=== PATIENT | male | born 1935 | race Caucasian/White ===

== ENCOUNTER 2018-12-01 01:30 | Emergency (ER) | payer OTHER ==
[~2018-12-01] VITALS: Ht 182.9 cm; Wt 112.0 kg
[~2018-12-01 01:30] MED LIST: ADULT LOW DOSE81 MG PO; ADVAIR HFA 230M12 GM INH; ALLOPURINOL 30300 M1 PO; CALCITRATE200 MG PO; CARDURA XL8 MG PO; CEFDINIR300 MG PO; CELEBREX 200 M200 M1 PO; CORTISPORIN OTI10 ML OT; COUMADIN 4 MG TA4 M1 PO; COUMADIN7.5 MG PO; ENOXAPARIN120 MG/0.8 SQ; FENOFIBRATE48 MG PO; FLOMAX0.4 MG PO; FLONASE 0.05%50 MCG NASAL; FUROSEMIDE 80 M80 M1 PO; IBUPROFEN 600600 M1 PO; K-DUR 20 MEQ T20 MEQ PO; LEVAQUIN 500 M500 M1; LISINOPRIL5 MG PO; LORATIDINE 10 M10 M1 PO; MECLIZINE HCL12.5 MG; METHOCARBAMOL500 M1 PO; MOMETASONE FURO60 ML; NAPROSYN500 MG PO; NORCO 5-325 TA1 EACH PO; PENICILLIN VK500 M1 PO; PERCOCET 5-3251 EACH PO; PREDNISONE 20 M20 MG PO; UNK MEDS; UNKNOWN MEDS; VENTOLIN HFA 1818 GM INH; ZOFRAN ODT4 MG PO
[2018-12-01] MEDS ORDERED: TRADJENTA5 MG (01:48)
[2018-12-01] MEDS ORDERED: METFORMIN HCL500 MG PO (01:48)
[2018-12-01] MEDS ORDERED: NEURONTIN 300300 M1 PO (01:49)
[2018-12-01] MEDS ORDERED: HYDROCHLOROTH12.5 M1 PO (01:49)
[2018-12-01] MEDS ORDERED: ATORVASTATIN CA40 MG PO (01:49)
[2018-12-01] MEDS ORDERED: COZAAR 50 MG TA50 M1 PO (01:50)
[2018-12-01] MEDS ORDERED: VOLTAREN GEL 1100 G1 TOP (01:50)
[2018-12-01 02:01] LABS: ABSOLUTE NEUTROPHILS 5.8 thou/uL (1.4-8.2); BASOPHILS 0.5 % (0.0-2.0); EOSINOPHILS 2.8 % (0.0-3.0); HEMOGLOBIN 15.2 gm/dL (14.0-18.0); LYMPHOCYTES 11.7 % (24.0-44.0); MCH 30.3 pg (26.0-34.0); MCHC 33.7 g/dL (28.0-37.0); MONOCYTES 9.3 % (1.0-8.0); PLATELET COUNT 129 thou/uL (150-400); POLYS 75.7 % (36.0-66.0); RDW 13.9 % (10.5-14.5); WBC 7.7 thou/uL (4.0-11.0)
[2018-12-01 02:08] LABS: ANION GAP 10 mmol/L (7-16); BUN 33 mg/dL (7-18); CALCIUM 8.9 mg/dL (8.5-10.1); CHLORIDE 97 mmol/L (98-107); CO2 29 mmol/L (21-32); CREATININE 1.3 mg/dL (0.7-1.3); GLUCOSE 144 mg/dL (74-106); POTASSIUM 3.4 mmol/L (3.5-5.1); SODIUM 136 mmol/L (136-145)
[2018-12-01 02:17] LABS: ALBUMIN 2.8 g/dL (3.4-5.0); LIPASE 105 U/L (73-393); SGOT 24 U/L (15-37); SGPT 36 U/L (30-65); TOTAL BILIRUBIN 0.7 mg/dL (<0.1-1.0); TOTAL PROTEIN 6.5 g/dL (6.4-8.2); TROPONIN-I <0.06 ng/mL (<0.06)
[2018-12-01 04:04] VITALS: BP 140/78
--- NOTE | 2018-12-01 12:08 | EKG ---
[place] [address] [facility] [place] [employer] [address] ELECTROCARDIOGRAM REPORT Name: EDEN KERR JR Room #: DEP [facility]#: [id number] ������������������ Admission: 12/01/18 ������������������ Attend Phys: Discharge: 12/01/18 ������������������ Date of : 35 Report #: [id number] ����������������������������������������������������������������� [id number] THIS REPORT FOR: //name// [facility] ED Test Date: 2018-12-01 Test Time: 01:54:06 Pat Name: EDEN USHA Department: Room: Gender: M Hand Stitcher: ángela : 1935 Requested By: Son Mclain Order Number: [id number] MD: Ottoniel Ralph Measurements Intervals [place] Rate: 77 P: 31 WI: 172 QRS: -66 QRSD: 139 T: 0 QT: 426 QTc: 483 Interpretive Statements Sinus rhythm Frequent Atrial premature complexes Left axis deviation Ventricular conduction delay consider right bundle branch block morphology Compared to ECG 04/09/2016 06:38:48 [place] and QRS duration changes noted Electronically Signed On 12-01-2018 12:07:59 [employer]IOR [employer] by Ottoniel Ralph [email or web address] ��������������������������������������������� <ELECTRONICALLY SIGNED> ���������������������������������������� By: Ottoniel Ralph MD ��������������������������������������������� 12/01/18 1209 [id number] Ottoniel Ralph MD /EPI
== END 2018-12-01 04:04 | disposition home or self-care (01) ==
LOC: ER 01:30
PROVIDERS: Emergency Medicine
DX: K20.9 Esophagitis, unspecified (principal); M10.9 Gout, unspecified; Z86.718 Personal history of other venous thrombosis and embolism; Z86.73 Personal history of transient ischemic attack (TIA), and cerebral infarction without residual deficits; Z90.49 Acquired absence of other specified parts of digestive tract; Z85.46 Personal history of malignant neoplasm of prostate

== ENCOUNTER 2019-02-28 05:53 | Emergency (ER) | payer OTHER ==
[~2019-02-28] VITALS: Ht 182.9 cm; Wt 111.1 kg
[~2019-02-28 05:53] MED LIST changes: +ATORVASTATIN CA40 MG PO; +COZAAR 50 MG TA50 M1 PO; +HYDROCHLOROTH12.5 M1 PO; +METFORMIN HCL500 MG PO; +NEURONTIN 300300 M1 PO; +TRADJENTA5 MG; +VOLTAREN GEL 1100 G1 TOP
[2019-02-28] MEDS ORDERED: ALBUTEROL2.5 MG/31 INH (06:07)
[2019-02-28] MEDS ORDERED: ASPIRIN81 M2 PO (06:08)
[2019-02-28] MEDS ORDERED: FISH OIL 1,001000 M2 PO (06:09)
[2019-02-28] MEDS ORDERED: FLONASE 0.05%50 MCG NASAL (06:09)
[2019-02-28] MEDS ORDERED: TYLENOL325 MG PO (06:11)
[2019-02-28] MEDS ORDERED: ELOCON15 GM TOP (06:12)
[2019-02-28] MEDS ORDERED: PROTONIX40 M2 PO (06:12)
[2019-02-28 06:34] LABS: ABSOLUTE NEUTROPHILS 5.4 thou/uL (1.4-8.2); BASOPHILS 0.4 % (0.0-2.0); EOSINOPHILS 1.9 % (0.0-3.0); HEMATOCRIT 48.6 % (42.0-52.0); HEMOGLOBIN 16.5 gm/dL (14.0-18.0); LYMPHOCYTES 10.2 % (24.0-44.0); MCH 31.6 pg (26.0-34.0); MCV 92.8 fL (80.0-100.0); MONOCYTES 9.7 % (1.0-8.0); PLATELET COUNT 162 thou/uL (150-400); POLYS 77.8 % (36.0-66.0); RBC 5.24 mil/uL (4.50-6.00); RDW 14.5 % (10.5-14.5); WBC 6.9 thou/uL (4.0-11.0)
[2019-02-28 06:38] LABS: CALCIUM 8.6 mg/dL (8.5-10.1); CREATININE 1.3 mg/dL (0.7-1.3); POTASSIUM 3.3 mmol/L (3.5-5.1)
[2019-02-28 06:44] LABS: ALBUMIN 2.9 g/dL (3.4-5.0); DIRECT BILIRUBIN 0.2 mg/dL (<0.1-0.3); TOTAL PROTEIN 6.4 g/dL (6.4-8.2)
[2019-02-28 07:15] VITALS: BP 136/66
[2019-02-28] MEDS ORDERED: PREDNISONE 20 M20 MG PO (07:16)
== END 2019-02-28 07:15 | disposition home or self-care (01) ==
LOC: ER 05:53
PROVIDERS: Emergency Medicine
DX: L50.9 Urticaria, unspecified (principal); R11.2 Nausea with vomiting, unspecified; R19.7 Diarrhea, unspecified; E11.9 Type 2 diabetes mellitus without complications; M10.9 Gout, unspecified; Z86.73 Personal history of transient ischemic attack (TIA), and cerebral infarction without residual deficits; Z86.718 Personal history of other venous thrombosis and embolism; Z90.49 Acquired absence of other specified parts of digestive tract; Z85.46 Personal history of malignant neoplasm of prostate; Z79.899 Other long term (current) drug therapy

== ENCOUNTER 2019-08-09 06:20 | Emergency (ER) | payer OTHER ==
[~2019-08-09] VITALS: Ht 177.8 cm; Wt 113.4 kg
[~2019-08-09 06:20] MED LIST changes: +ALBUTEROL2.5 MG/31 INH; +ASPIRIN81 M2 PO; +ELOCON15 GM TOP; +FISH OIL 1,001000 M2 PO; +PROTONIX40 M2 PO; +TYLENOL325 MG PO
[2019-08-09 06:47] LABS: BASOPHILS 0.8 % (0.0-2.0); EOSINOPHILS 2.9 % (0.0-3.0); HEMATOCRIT 44.5 % (42.0-52.0); HEMOGLOBIN 14.9 gm/dL (14.0-18.0); LYMPHOCYTES 12.2 % (24.0-44.0); MCH 30.2 pg (26.0-34.0); MCHC 33.5 g/dL (28.0-37.0); MCV 90.3 fL (80.0-100.0); MONOCYTES 7.7 % (1.0-8.0); PLATELET COUNT 157 thou/uL (150-400); POLYS 76.4 % (36.0-66.0); RBC 4.93 mil/uL (4.50-6.00); WBC 10.5 thou/uL (4.0-11.0)
[2019-08-09 06:52] LABS: CALCIUM 8.9 mg/dL (8.5-10.1); CREATININE 1.2 mg/dL (0.7-1.3)
[2019-08-09] MEDS ORDERED: PROAIR HFA8.5 GM INH (07:32)
[2019-08-09 07:36] VITALS: BP 137/86
== END 2019-08-09 07:48 | disposition home or self-care (01) ==
LOC: ER 06:20
PROVIDERS: Emergency Medicine
DX: S80.11XA Contusion of right lower leg, initial encounter (principal); B34.9 Viral infection, unspecified; E11.9 Type 2 diabetes mellitus without complications; E66.9 Obesity, unspecified; M10.9 Gout, unspecified; M79.89 Other specified soft tissue disorders; Z68.35 Body mass index [BMI] 35.0-35.9, adult; Z86.718 Personal history of other venous thrombosis and embolism; Z86.73 Personal history of transient ischemic attack (TIA), and cerebral infarction without residual deficits; Z90.49 Acquired absence of other specified parts of digestive tract; Z85.46 Personal history of malignant neoplasm of prostate; X58.XXXA Exposure to other specified factors, initial encounter; Y93.89 Activity, other specified; Y92.59 Other trade areas as the place of occurrence of the external cause; Y99.0 Civilian activity done for income or pay